=== PATIENT | female | born 2000 | race Hispanic/Latino ===

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

== ENCOUNTER 2022-11-15 10:36 | Emergency (ER) | payer OTHER, MEDICAID ==
[~2022-11-15] VITALS: Ht 157.5 cm; Wt 136.1 kg
[2022-11-15 10:41] VITALS: BP 150/98
[2022-11-15] MEDS ORDERED: CYCL-309 PO (11:10)
== END 2022-11-15 12:54 | disposition home or self-care (01) ==
LOC: EDH 10:36
DX: R51.9 Headache, unspecified (principal); R11.2 Nausea with vomiting, unspecified